=== PATIENT | male | born 1980 | race Caucasian/White ===

== ENCOUNTER 2024-03-26 12:46 | Emergency (ER) | payer OTHER, SELFPAY ==
[2024-03-26 12:50] VITALS: BP 134/78; PULSE 60; RESP 18; TEMP 36.8; O2SAT 98; BMI 28.8
--- NOTE | 2024-03-26 12:54 | DI.RAD.S_ITS ---
PROCEDURE: XR FINGER LT MIN 2V INDICATIONS: pain in thumb joint for over 1 month TECHNIQUE: AP hand, 2 views of the thumb acquired. COMPARISON: None. FINDINGS: Bones: No fractures or dislocations. No suspicious bony lesions. Soft tissues: No suspicious soft tissue calcifications. No radiopaque foreign body. IMPRESSION: No acute bony abnormality. No radiopaque foreign body. Dictated by: Mt Blanco M.D. on 03/26/2024 at 13:34 Approved by: Mt Blanco M.D. on 03/26/2024 at 13:35
--- NOTE | 2024-03-26 12:58 | ED.UPPEXIN ---
HPI - Extremity Injury (Upper) <Maximiliano Joyner PA-C - Last Filed: 03/26/24 13:49> General Chief Complaint: Extremity Injury, Upper Stated Complaint: lt thumb sore/pain Time Seen by Provider: 03/26/24 12:58 Source: patient Mode of arrival: Ambulatory History of Present Illness HPI narrative: This is a 43-year-old male presents to the emergency department due to left thumb pain for the last month. He states that he was working with a piece of metal when he felt some middle spurs scraped against the dorsal aspect of his left thumb at the interphalangeal joint. He states that the laceration healed but states this still is painful when he brushes the thumb against any surfaces. Denies any pain while at rest. Concerned that there may be a foreign body in his skin. Denies any numbness or any other concerning signs or symptoms. Related Data Home Medications Medication Instructions Recorded Confirmed naproxen 500 mg tablet ##0 06/13/17 Previous Rx's Medication Instructions Recorded metoclopramide HCl 10 mg tablet 10 mg PO TIDP PRN #60 tabs 10/24/17 naproxen 500 mg tablet (Naprosyn) 500 mg PO BID #60 tabs 10/24/17 Allergies Allergy/AdvReac Type Severity Reaction Status Date / Time Penicillins [PENICILLINS] Allergy Mild RASH/ Verified 03/26/24 12:54 BLOATING Sulfa (Sulfonamide Allergy Mild RASH Verified 03/26/24 12:54 Antibiotics) [SULFA (SULFONAMIDE ANTIBIOTICS)] Review of Systems <Maximiliano Joyner PA-C - Last Filed: 03/26/24 13:49> Review of Systems Narrative: GENERAL: Denies chills, fatigue, malaise, fever, sweats. HEENT: Denies sinus pain, ear pain, sore throat, difficulty swallowing, dizziness. RESPIRATORY: Denies dyspnea, cough, wheezing, hemoptysis, sputum. CARDIOVASCULAR: Denies chest pain, palpitations, orthopnea, edema, GASTROINTESTINAL: Denies nausea, vomiting, abdominal pain, diarrhea, constipation, melena. : Denies dysuria, frequency, incontinence, hematuria, urinary retention. MUSCULOSKELETAL: Reports left thumb SKIN: Denies rash, skin lesions, or other NEUROLOGIC: Denies weakness, headache, numbness, change in speech, confusion, seizures, incoordination. PSYCHIATRIC: No concerning psychosocial issues. 12 point review of systems is negative except for those stated above Patient History <Maximiliano Joyner PA-C - Last Filed: 03/26/24 13:49> Family History (Updated 07/24/15 @ 00:00 by Jelani Weston MD) Father Family history of lung cancer Mother Family history of diabetes mellitus Social History Smoking Status: Never smoker Smoking Status: Never smoker alcohol intake frequency: 0-2 drinks per day Substance Use Type: marijuana Exam <Maximiliano Joyner PA-C - Last Filed: 03/26/24 13:49> Narrative Exam Narrative: GENERAL: Well-developed patient, in mild distress. HEAD: Atraumatic. Normocephalic. EYES: Pupils equal round and reactive. Extraocular motions intact. No scleral icterus. No injection or drainage. ENT: Nose without bleeding, purulent drainage. Throat without erythema, tonsillar hypertrophy or exudate. Airway patent. NECK: Trachea midline. Non tender EXTREMITIES: No edema or joint tenderness. NEURO: AOx3. SKIN: Some tenderness to palpation to the dorsal aspect of the left thumb at the interphalangeal joint. Neurovascularly intact. A small raised area skin without any significant erythema or fluctuance. No warmth. Initial Vital Signs Initial Vital Signs: Vital Signs Temperature 98.2 F 03/26/24 12:50 Pulse Rate 60 03/26/24 12:50 Respiratory Rate 18 03/26/24 12:50 Blood Pressure 134/78 03/26/24 12:50 Pulse Oximetry 98 03/26/24 12:50 Oxygen Delivery Method Room Air 03/26/24 12:50 <Kenna Fonseca MD - Last Filed: 03/26/24 15:55> Initial Vital Signs Initial Vital Signs: Vital Signs Temperature 98.2 F 03/26/24 12:50 Pulse Rate 60 03/26/24 12:50 Respiratory Rate 18 03/26/24 12:50 Blood Pressure 134/78 03/26/24 12:50 Pulse Oximetry 98 03/26/24 12:50 Oxygen Delivery Method Room Air 03/26/24 12:50 Course <Maximiliano Joyner PA-C - Last Filed: 03/26/24 13:49> Orders Ordered: ED Orders 03/26/24 12:54 XR finger LT min 2V Stat Vital Signs Vital signs: Vital Signs - 8 hr 03/26/24 12:50 Temperature 98.2 F Pulse Rate 60 Respiratory Rate 18 Blood Pressure 134/78 Pulse Oximetry 98 Oxygen Delivery Method Room Air <Kenna Fonseca MD - Last Filed: 03/26/24 15:55> Orders Ordered: ED Orders 03/26/24 12:54 XR finger LT min 2V Stat Vital Signs Vital signs: Vital Signs - 8 hr 03/26/24 12:50 Temperature 98.2 F Pulse Rate 60 Respiratory Rate 18 Blood Pressure 134/78 Pulse Oximetry 98 Oxygen Delivery Method Room Air MDM - Extremity Injury (Upper) <Maximiliano Joyner PA-C - Last Filed: 03/26/24 13:49> Imaging Data Extremity x-ray #1: Radiologist's Impression: [address] [address] XRay Report Signed Patient: José Luis Blackburn MR#: [id number] : 1980 Acct:[id number] Age/Sex: 43 / M Date of Service: 03/26/24 Loc: ED Accession Number: [id number] Procedure: XR finger LT min 2V Ordering Provider: Kenna Fonseca MD PROCEDURE: XR FINGER LT MIN 2V INDICATIONS: pain in thumb joint for over 1 month TECHNIQUE: AP hand, 2 views of the thumb acquired. COMPARISON: None. FINDINGS: Bones: No fractures or dislocations. No suspicious bony lesions. Soft tissues: No suspicious soft tissue calcifications. No radiopaque foreign body. IMPRESSION: No acute bony abnormality. No radiopaque foreign body. Dictated by: Mt Blanco M.D. on 03/26/2024 at 13:34 Approved by: Mt Blanco M.D. on 03/26/2024 at 13:35 [facility] Narrative Medical decision making narrative: ED course: He was a 43-year-old male presents to the emergency department with complaints of foreign body to an area to the dorsal aspect of the thumb. X-ray was initially ordered, while waiting for x-ray review patient reports that he was able to pull out the small possible foreign body which appeared to be a bit a of plastic. X-rays showed no other abnormalities. Patient reports feeling better after pulling the a foreign object from his thumb. Does not appear to be any evidence of infection or purulent drainage. CC: Thumb foreign body Complicating co-morbidities: None Data collected from: Previous notes Medical records reviewed: Patient was not been to this emergency department in the past. Differential considered, but not limited to: Retained foreign body, fracture Exam documented above, pertinent findings include: No significant erythema or purulent drainage concerning for infection Lab Test results independently reviewed as above. Pertinent findings: None obtained Imaging studies independently reviewed: X-ray showed no foreign bodies Scores Used: None MIPS Elements: None Consultations: None Treatments: None Re-evaluations: None Discussion: Discussed plan with the patient was comfortable with the plan Diagnosis: Left thumb foreign body Disposition: see below, along with detailed discharge instructions that have been reviewed with patient as well as indications for ED re-evaluation and additional outpatient follow up Discharge Plan Departure Patient Disposition: Home Clinical Impression: Foreign body of left thumb Activity Restrictions/Additional Instructions: Thank you for coming to the [facility] Emergency Department today. I am glad that you are able to remove the foreign body from your thumb. Your x-ray shows no other abnormalities. Please return to the emergency department if you develop any redness spreading from the thumb or any purulent drainage or any other concerning signs or symptoms. I hope you feel better soon. Please follow up with your primary care provider within a week if your symptoms continue. If you do not have a primary care provider please contact the [facility] Resource line at [phone]. They will ask some questions about your medical history and help you get set up with a provider in the community. Prescriptions: No Action naproxen 500 MG tablet Qty: 0 naproxen [Naprosyn] 500 MG tablet 500 mg PO BID Qty: 60 0RF metoclopramide HCl 10 MG tablet 10 mg PO TIDP PRNQty: 60 0RF Referrals: Jelani Weston MD [Primary Care Provider] - Stand Alone Forms: Patient Portal/API ED Sign-out <Kenna Fonseca MD - Last Filed: 03/26/24 15:55> Cosign ED Attending Cosignature Attestation: I did not see this patient. I was available all times for consultation.
== END 2024-03-26 13:52 | disposition home or self-care (01) ==
PROVIDERS: Emergency Provider Physician Assistant Medical; Family Provider Internal Medicine; PCP Internal Medicine
DX: S60.352A Superficial foreign body of left thumb, initial encounter (principal); W45.8XXA Other foreign body or object entering through skin, initial encounter
CPT/HCPCS: 73140; 99281; 99282